=== PATIENT | male | born 2005 | race Hispanic/Latino ===

== ENCOUNTER 2025-06-02 21:37 | Emergency (ER) | payer SELFPAY | END 2025-06-02 22:23 | disposition home or self-care (01) | LOC: CSHERS 21:37 | DX: S61.210A Laceration without foreign body of right index finger without damage to nail, initial encounter (principal); W26.0XXA Contact with knife, initial encounter; Y92.89 Other specified places as the place of occurrence of the external cause; Y99.0 Civilian activity done for income or pay | CPT/HCPCS: 12001; 99282 ==